=== PATIENT | male | born 1955 | race American Indian/Alaskan Native ===

== ENCOUNTER 2019-07-25 10:55 | Outpatient (CLI) | payer OTHER ==
--- NOTE | 2019-07-25 12:01 | XRay Report ---
Right hip 3 views INDICATION: Right hip pain IMPRESSION: The right total hip arthroplasty remains intact without periprosthetic fracture or disloc ation. Signer Name: Brian Ramires MD Signed: 07/25/2019 11:56 AM Workstation Name: [id number]
== END 2019-07-25 10:56 | disposition home or self-care (01) ==
LOC: SPVIMAG 10:55
PROVIDERS: ATTEND Internal Medicine
DX: M25.551 Pain in right hip (principal); Z96.641 Presence of right artificial hip joint